=== PATIENT | male | born 1990 | race Caucasian/White ===

== ENCOUNTER 2019-12-02 16:44 | Inpatient (IN) | payer MEDICAID, SELFPAY ==
--- NOTE | 2019-12-02 16:49 | W.ED.PSYCH ---
HPI - Psych General: Chief Complaint: Altered Mental Status Stated Complaint: 96 hour hold Time Seen by Provider: 12/02/19 16:49 History of Present Illness: HPI Narrative: 29-year-old male brought in by [facility] for psychiatric evaluation. Patient is poorly responsive does not answer questions appropriately cannot get any meaningful history from him I have seen this patient in the past he appears to be in acute psychotic episode. Is actively having visual and auditory hallucinations in the exam room. Review of Systems General: Reports: ROS unobtainable due to medical condition and ROS unobtainable due to mental status PFSH ED PFSH: Social History Smoking and tobacco status: current every day smoker Physical Exam Const: COMMON NORMALS: no apparent distress EXAM LIMITATIONS: altered mental status GENERAL APPEARANCE: cooperative, comfortable, disheveled, lethargic and frail appearing NUTRITIONAL APPEARANCE: thin ORIENTATION/CONSCIOUSNESS: Yes lethargic HENMT: COMMON NORMALS: normocephalic, head/scalp atraumatic, hearing grossly normal bilaterally, external ears normal, EAC's normal, TM's normal bilaterally, nasal mucous membranes and turbinates normal, moist oral mucous membranes and oropharynx normal HEAD & SCALP: normocephalic and atraumatic NOSE: nasal mucous membranes and turbinates normal EXTERNAL EAR: Yes external ears normal EXTERNAL AUDITORY CANAL: EAC's normal TYMPANIC MEMBRANE: TM's normal bilaterally Eye: COMMON NORMALS: PERRL, EOMs intact bilaterally, conjunctivae normal and no scleral icterus CONJUNCTIVA: Yes conjunctivae normal PUPIL: Yes PERRL Neck/C-Spine: COMMON NORMALS: full ROM, no lymphadenopathy, supple and no JVD Lymph: LYMPHATIC: no lymphadenopathy noted and no lymphedema noted Resp: COMMON NORMALS: normal respiratory effort, no retractions, no use of accessory muscles and clear to auscultation bilaterally AUSCULTATION: clear to auscultation bilaterally Cardio: COMMON NORMALS: no JVD, regular rate, regular rhythm and no murmurs RATE: regular rate RHYTHM: regular rhythm GI: COMMON NORMALS: soft to palpation and no hepatosplenomegaly AUSCULTATION: Yes normoactive bowel sounds PALPATION: Yes soft, No tender, No guarding and Yes no hepatosplenomegaly Extremity: COMMON NORMALS: normal to inspection, normal capillary refill, no clubbing, cyanosis or edema, no calf tenderness and no pedal edema OTHER: Long nails, poor hygiene Neuro: SENSORIUM/ORIENTATION: Yes lethargic Skin: COMMON NORMALS: no rashes or lesions noted GENERAL SKIN EXAM: no rashes or lesions noted MDM - Psych MDM Narrative: Medical decision making narrative: Then medicated due to circumstances. Did not this measures to this point to become a psychiatric. He is having auditory visual hallucinations actively emergency room or with apparent harm to himself or others at this point. He has not adequately treated he will not be able to take care of himself and will become more harm himself or others. We will go ahead and put him on a 96-hour hold discussed with Dr. aleman Lab Data: Labs: Lab Results 12/02/19 12/02/19 12/02/19 Range/Units 17:17 17:17 18:00 WBC 8.7 (4.0-10.0) 10^3/ uL RBC 5.19 (4.1-5.3) 10^6/u L Hgb 15.5 (11.7-16.6) g/dL Hct 47.0 (42.0-52.0) % MCV 90.6 (80-94) fL MCH 29.9 (28.0-34.0) pg MCHC 33.0 (30.0-36.0) g/dL RDW 13.0 (12.1-15.1) % Plt Count 287 (130-400) 10^3/c mm MPV 10.9 H (7.4-10.4) fL Neut % (Auto) 78.7 % Lymph % (Auto) 13.4 % [place] % (Auto) 5.8 % Eos % (Auto) 1.0 % Baso % (Auto) 0.9 % Neut # (Auto) 6.9 (1.8-7.7) 10^3/u L Lymph # (Auto) 1.2 (0.8-4.8) 10^3/u L [place] # (Auto) 0.5 (0.2-0.9) 10^3/u L Eos # (Auto) 0.1 (0.0-0.8) 10^3/u L Baso # (Auto) 0.1 (0.0-0.1) 10^3/u L Nucleated RBC % (a uto) 0 % Nucleated RBCs # 0.0 /100WBC Sodium 140 (136-145) mmol/L Potassium 3.7 (3.5-5.1) mmol/L Chloride 102 (98-107) mmol/L Carbon Dioxide 25 (22-29) mmol/L Anion Gap 16.7 (5-19) BUN 8 (6-20) mg/dL Creatinine 0.9 (0.7-1.2) mg/dL GFR Calculation 99.1 (90-130) mL/min Glucose 136 H (65-115) mg/dL Calculated Osmolal ity 288 (285-295) mOsm/k g Calcium 10.1 (8.5-10.5) mg/dL Total Bilirubin 0.3 (0.15-1.2) mg/dL AST 21 (0-40) U/L ALT 16 (0-41) U/L Alkaline Phosphata se 59 (40-130) IU/L Total Protein 7.7 (6.6-8.7) g/dL Albumin 4.5 (3.5-5.2) g/dL Globulin 3.2 (1.3-4.6) g/dL Salicylates 0.5 L (3-10) mg/dL Urine Opiates Scre en Negative (Negative) ng/mL Acetaminophen < 5.0 L (10-30) ug/mL Ur Barbiturates Sc reen Negative (Negative) ng/mL Ur Phencyclidine S crn Negative (Negative) ng/mL Ur Amphetamines Sc reen Negative (Negative) ng/mL U Benzodiazepines Scrn Negative (Negative) ng/mL Urine Cocaine Scre en Negative (Negative) ng/mL U Marijuana (THC) Screen Negative (Negative) ng/mL Ethyl Alcohol < 10 (0-10) mg/dL Discharge Plan Discharge Admit Provider: Ajith Dunne Clinical Impression: Chronic schizophrenia with acute exacerbation Condition: Stable Interventions: ED Discharge Assessment Last Done: 12/02/19 18:45 Discharge Date/Time: 12/02/19 18:46 Coding Level of Care Code ED Nurse Special for Theresa Coelho
[2019-12-02 16:52] VITALS: BP 165/114; PULSE 112; RESP 20; TEMP 37.4; O2SAT 99; BMI 24.2
[2019-12-02 17:35] LABS: Basophils # 0.1 10^3/uL (0.0-0.1); Basophils % 0.9 %; Eosinophils # 0.1 10^3/uL (0.0-0.8); Hemoglobin 15.5 g/dL (11.7-16.6); Lymphocytes # 1.2 10^3/uL (0.8-4.8); Lymphocytes % 13.4 %; Mean Corpuscular Hemoglobin 29.9 pg (28.0-34.0); Mean Corpuscular Volume 90.6 fL (80-94); Mean Platelet Volume 10.9 fL (7.4-10.4); Monocytes # 0.5 10^3/uL (0.2-0.9); Monocytes % 5.8 %; Neutrophils # 6.9 10^3/uL (1.8-7.7); Neutrophils % 78.7 %; Nucleated Red Blood Cells % 0 %; Platelet Count 287 10^3/cmm (130-400); Red Blood Count 5.19 10^6/uL (4.1-5.3); White Blood Count 8.7 10^3/uL (4.0-10.0)
[2019-12-02 17:45] LABS: Alanine Aminotransferase 16 U/L (0-41); Albumin Level 4.5 g/dL (3.5-5.2); Alkaline Phosphatase 59 IU/L (40-130); Anion Gap 16.7 (5-19); Aspartate Amino Transferase 21 U/L (0-40); Blood Urea Nitrogen 8 mg/dL (6-20); Calcium 10.1 mg/dL (8.5-10.5); Carbon Dioxide 25 mmol/L (22-29); Chloride 102 mmol/L (98-107); Globulin 3.2 g/dL (1.3-4.6); Glomerular Filtration Rate 99.1 mL/min (90-130); Glucose 136 mg/dL (65-115); Osmolality Calculated 288 mOsm/kg (285-295); Potassium 3.7 mmol/L (3.5-5.1); Salicylate 0.5 mg/dL (3-10); Sodium 140 mmol/L (136-145); Total Bilirubin 0.3 mg/dL (0.15-1.2); Total Protein 7.7 g/dL (6.6-8.7)
[2019-12-02 17:46] LABS: Acetaminophen < 5.0 ug/mL (10-30); Alcohol Level < 10 mg/dL (0-10)
--- NOTE | 2019-12-02 18:11 | PC.NURSE ---
Patient pacing room, refusing to sit down at this time.
[2019-12-02 18:19] LABS: Amphetamines Screen Urine Negative (Negative); Barbiturates Screen Urine Negative (Negative); Benzodiazepines Screen Urine Negative (Negative); Cocaine Screen Urine Negative (Negative); Opiate Screen Urine Negative (Negative); PCP Screen Urine Negative (Negative); THC Screen Urine Negative (Negative)
[2019-12-02 18:38] VITALS: BP 172/104; PULSE 96; RESP 14; O2SAT 99
[2019-12-02 18:55] VITALS: BMI 20.8
[2019-12-02 18:57] VITALS: BP 153/94; PULSE 104; RESP 18; TEMP 36.4; O2SAT 98
[2019-12-02] MEDS: OLANZapine ODT 5 MG TABLET PO (21:22)
[2019-12-02] MEDS: trazodone 50 mg Tablet PO (21:23)
--- NOTE | 2019-12-02 21:24 | PC.NURSE ---
Pt given PRN Trazodone and Zyprexa due to continuous pacing, and to assist with sleep.
[2019-12-03 06:00] VITALS: BP 109/68; PULSE 75; RESP 18; TEMP 36.6; O2SAT 95
[2019-12-03 12:53] VITALS: BP 100/65; PULSE 98; RESP 18; TEMP 36.8; O2SAT 97
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
[2019-12-03] MEDS: ARIPiprazole 10 mg Tablet 5 MG PO (16:57)
[2019-12-03] MEDS: atenolol 50 mg Tablet 25 MG PO (20:07)
[2019-12-03] MEDS: trazodone 50 mg Tablet PO (20:07)
[2019-12-03] MEDS: OLANZapine ODT 5 MG TABLET PO (20:07)
--- NOTE | 2019-12-03 20:34 | PC.NURSE ---
PT GIVEN SCHEDULED ATENOLOL WELL PRN ZYPREXA AND TRAZODONE AT 2006.
[2019-12-03 21:17] VITALS: BP 122/60; PULSE 76; RESP 18; TEMP 37.1; O2SAT 96
[2019-12-04 06:00] VITALS: BP 114/60; PULSE 65; RESP 16; TEMP 36.4; O2SAT 97
[2019-12-04] MEDS: ARIPiprazole 10 mg Tablet 5 MG PO (08:53)
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
[2019-12-04 14:00] VITALS: BP 132/86; PULSE 88; RESP 18; TEMP 37.3; O2SAT 99
[2019-12-04 20:03] VITALS: BP 147/87; PULSE 86; RESP 17; TEMP 37; O2SAT 98
[2019-12-04] MEDS: atenolol 50 mg Tablet 25 MG PO (20:46)
[2019-12-04] MEDS: ARIPiprazole 10 mg Tablet PO (20:46)
[2019-12-04] MEDS: OLANZapine ODT 5 MG TABLET PO (23:49)
[2019-12-04] MEDS: trazodone 50 mg Tablet PO (23:49)
[2019-12-05 06:00] VITALS: BP 118/70; PULSE 67; RESP 17; TEMP 36.7; O2SAT 95
--- NOTE | 2019-12-05 10:41 | P.PN_ITS ---
Subjective NPU Subjective: Interval history: She is encountered in bed. He is easily awakened by verbal stimuli. However he does not respond with verbalizations that are intelligible. He then quickly goes back to sleep. Mental Status Exam MSE Comments: Mental Status Exam: Appearance: hygiene is poor; no gross neurological deficits., gait is unremarkable; AIMS=0 Speech: Speech is difficult to understand as he speaks in a low tone. He speaks only one-word responses but provides no significant information Thought processes: unable to assess Judgment is not adequate for safety. Psychotic processes: he seems cautious but not fearful. It is unclear whether he is attending to internal stimuli or just avoiding eye contact as a means of avoiding the interaction. He does not respond verbally and does not appear to be responding to any type of auditory hallucinations that he may be having. Judgment: unable to assess Problem solving skills are adequate for safety. Orientation: unable to assess Memory: unable to assess Attention: The patient is alert and only marginally interpersonally engaged. Language: Verbalizations are barely coherent. Fund of knowledge: unable to assess Affect/Mood: Affect is flat with a unstated mood. unable to assess suicidal ideation Affective range is constricted Psychosis: unable to assess Cognition: Patient Appearance: Appears Younger than Age and Disheveled/Poor Hygiene Level of Consciousness: Awake and Disoriented Patient Cognition Impaired: Yes Ability to Follow Directions: Poor Patient Orientation (long list): Person Comprehension Ability: Moderate Impairment Hallucination Type: None Delusion Description: Paranoid Ideation Thought Process: Blocking Affect: Affect Description: Appropriate and Calm Behavior: Patient Behavior: Appropriate Speech Pattern: Delayed and Difficulty Finding Words Vitals/I&O/Wt Last Vital Signs Temp 98.1 F 12/05/19 06:00 Pulse 67 12/05/19 06:00 Resp 17 12/05/19 06:00 BP 118/70 12/05/19 06:00 Pulse Ox 95 12/05/19 06:00 Data NPU : 12/02/19 17:17 12/02/19 17:17 A&P Additional A&P Information Due to the psychiatric conditions and treatment listed in the Assessment and Plan - the patient requires continued hospitalization. Will provide a safe and therapeutic environment for patient.. Will continue inpatient treatment to allow for medication adjustment and monitoring. Will continue q15 min safety checks. the patient appears to have been discharged on a combination of an antipsychotic and Depakote past 2 admissions. However it is unclear how those medications were chosen. Given the presence of apparent cognitive patients, it would be desirable to avoid sedating antipsychotics. Given history of elevated ammonia and its potential for causing delirium and behavioral disturbance, will avoid the use of Depakote at this time. Will initiate with a trial of Abilify 5 mg at bedtime with the potential of going to an injectable format tolerated and effective. Will also initiate atenolol as a beta óscar to try and reduce his level of explosive outbursts. Adjustments will be made pending response. Hospital Day #3: Pt continues to be unable to verbally provide feedback on medication efficacy and tolerability. He was given prn olanzapine and trazodone at 22:30 last night. Reasons are unclear but explain his degree of sedation this am. Plan: no changes. Am inclined to D/C hs olanzapine prn but will await information from staff about last night. no changes at thtis time. Monitor patient's mood, sleep, appetite, and behavior closely. Encourage patient to participate in individual and group therapeutic sessions on the [facility]. Estimated length of stay 5 days The expected benefits and potential side effects of patient's psychiatric medications were discussed with the patient. The patient understands and consents to treatment. CRITERIA FOR DISCHARGE: stable on medications and no longer an imminent threat to self or others Involuntary Hold Information 96 Hour Hold: 96 Hour Involuntary Admission: No Attestations NPU Medical Necessity Statement*: Patient will remain in the hospital another for 5 nights until his level of psychosis improved. Coding Level of Care Code Acute Automatic Clipper for Theresa Coelho
[2019-12-05 14:00] VITALS: BP 125/71; PULSE 76; RESP 20; TEMP 36.6; O2SAT 97
[2019-12-05] MEDS: atenolol 50 mg Tablet 25 MG PO (20:25)
[2019-12-05] MEDS: ARIPiprazole 10 mg Tablet 20 MG PO (20:26)
[2019-12-05] MEDS: trazodone 50 mg Tablet PO (20:27)
[2019-12-05 20:29] VITALS: BP 145/97; PULSE 90; RESP 17; TEMP 36.6; O2SAT 98
[2019-12-06 06:00] VITALS: BP 134/93; PULSE 64; RESP 16; TEMP 36.6; O2SAT 96
--- NOTE | 2019-12-06 08:21 | PM.NPN ---
Subjective NPU Subjective: Interval history: He is again encountered in bed. He is easily awakened by verbal stimuli b ut does not arise. He has not eaten breakfast. . He does not respond with verbalizations that are intelligible. He then quickly goes back to sleep. Vital Signs Temp Pulse Resp BP Pulse Ox 12/06/19 06:00 97.9 F 64 16 134/93 96 12/05/19 20:29 97.9 F 90 17 145/97 98 12/05/19 14:00 98 F 76 20 H 125/71 97 Unable to figure out to get running list of BP/pulse into record but diastolic pressures have been mildly elevated since admission Mental Status Exam MSE Comments: Mental Status Exam: Appearance: hygiene is poor; no gross neurological deficits., gait is unremarkable; AIMS=0 Speech: Speech is difficult to understand as he speaks in a low tone. He speaks only one-word responses but provides no significant information Thought processes: unable to assess Judgment is not adequate for safety. Psychotic processes: he seems cautious but not fearful. It is unclear whether he is attending to internal stimuli or just avoiding eye contact as a means of avoiding the interaction. He does not respond verbally and does not appear to be responding to any type of auditory hallucinations that he may be having. Judgment: unable to assess Problem solving skills are adequate for safety. Orientation: unable to assess Memory: unable to assess Attention: The patient is alert and only marginally interpersonally engaged. Language: Verbalizations are barely coherent. Fund of knowledge: unable to assess Affect/Mood: Affect is flat with a unstated mood. unable to assess suicidal ideation Affective range is constricted Psychosis: unable to assess Cognition: Patient Appearance: Appears Younger than Age and Disheveled/Poor Hygiene Level of Consciousness: Awake and Disoriented Patient Cognition Impaired: Yes Ability to Follow Directions: Poor Patient Orientation (long list): Person Comprehension Ability: Moderate Impairment Hallucination Type: None Delusion Description: Paranoid Ideation Thought Process: Blocking Affect: Affect Description: Appropriate Behavior: Patient Behavior: Appropriate Speech Pattern: Appropriate Vitals/I&O/Wt Last Vital Signs Temp 97.9 F 12/06/19 06:00 Pulse 64 12/06/19 06:00 Resp 16 12/06/19 06:00 BP 134/93 12/06/19 06:00 Pulse Ox 96 12/06/19 06:00 Data NPU : 12/02/19 17:17 12/02/19 17:17 A&P Additional A&P Information Due to the psychiatric conditions and treatment listed in the Assessment and Plan - the patient requires continued hospitalization. Will provide a safe and therapeutic environment for patient.. Will continue inpatient treatment to allow for medication adjustment and monitoring. Will continue q15 min safety checks. the patient appears to have been discharged on a combination of an antipsychotic and Depakote past 2 admissions. However it is unclear how those medications were chosen. Given the presence of apparent cognitive patients, it would be desirable to avoid sedating antipsychotics. Given history of elevated ammonia and its potential for causing delirium and behavioral disturbance, will avoid the use of Depakote at this time. Will initiate with a trial of Abilify 5 mg at bedtime with the potential of going to an injectable format tolerated and effective. Will also initiate atenolol as a beta óscar to try and reduce his level of explosive outbursts. Adjustments will be made pending response. Hospital Day #3: Pt continues to be unable to verbally provide feedback on medication efficacy and tolerability. He was given prn olanzapine and trazodone at 22:30 last night. Reasons are unclear but explain his degree of sedation this am. Plan: no changes. Am inclined to D/C hs olanzapine prn but will await information from staff about last night. no changes at thtis time. HD#4: mildly sedated after monodosing of Abilify 20 mg at bedtime. Diasotolic pressures remain elevated. Concerned that if Atenolol is increased, his level of sedation will increase as well. Plan: Decrease Abilify to 15 mg at bedtime and increase Atenolol to 50 mg at bedtime. Monitor patient's mood, sleep, appetite, and behavior closely. Encourage patient to participate in individual and group therapeutic sessions on the [facility]. Estimated length of stay 5 days The expected benefits and potential side effects of patient's psychiatric medications were discussed with the patient. The patient understands and consents to treatment. CRITERIA FOR DISCHARGE: stable on medications and no longer an imminent threat to self or others Involuntary Hold Information 96 Hour Hold: 96 Hour Involuntary Admission: No Attestations NPU Medical Necessity Statement*: Remain in the hospital another 3 nights for medication efficacy and tolerability reassessment Coding Level of Care Code Acute Station Gateman for Theresa Coelho
--- NOTE | 2019-12-06 12:45 | PC.SLP ---
mom was called and she said that she would like to see patient get an injection. It was suggested to her and she liked the idea. the issue she might have is where he will go to get it in a month. She said that she thinks she can take him to primary care doctor if she cannot get him in with [facility] [place]. She plans to call tomorrow to see if it is happening tomorrow or monday. She has to arrange her ride so she will be checking with his nurse before she makes plans to come here.
[2019-12-06 14:00] VITALS: BP 145/80; PULSE 85; RESP 20; TEMP 36.9; O2SAT 99
[2019-12-06] MEDS: ARIPiprazole 10 mg Tablet 15 MG PO (20:41)
[2019-12-06] MEDS: atenolol 50 mg Tablet PO (20:41)
[2019-12-06 22:00] VITALS: BP 152/110; PULSE 78; RESP 18; TEMP 36.8; O2SAT 100
[2019-12-07 06:00] VITALS: BP 116/67; PULSE 50; RESP 16; TEMP 36.8; O2SAT 97
--- NOTE | 2019-12-07 08:44 | PM.NPN ---
Subjective NPU Subjective: Interval history: He is again encountered in bed. He is easily awakened by verbal stimuli b ut does not arise. He has not eaten breakfast. . He does not respond with verbalizations that are intelligible. He then quickly goes back to sleep. Vital Signs Temp Pulse Resp BP Pulse Ox 12/06/19 06:00 97.9 F 64 16 134/93 96 12/05/19 20:29 97.9 F 90 17 145/97 98 12/05/19 14:00 98 F 76 20 H 125/71 97 Mental Status Exam MSE Comments: Mental Status Exam: Appearance: hygiene is poor; no gross neurological deficits., gait is unremarkable; AIMS=0 Speech: Speech is difficult to understand as he speaks in a low tone. He speaks only one-word responses but provides no significant information Thought processes: unable to assess Judgment is not adequate for safety. Psychotic processes: he seems cautious but not fearful. It is unclear whether he is attending to internal stimuli or just avoiding eye contact as a means of avoiding the interaction. He does not respond verbally and does not appear to be responding to any type of auditory hallucinations that he may be having. Judgment: unable to assess Problem solving skills are adequate for safety. Orientation: unable to assess Memory: unable to assess Attention: The patient is alert and only marginally interpersonally engaged. Language: Verbalizations are barely coherent. Fund of knowledge: unable to assess Affect/Mood: Affect is flat with a unstated mood. unable to assess suicidal ideation Affective range is constricted Psychosis: unable to assess Cognition: Patient Appearance: Appears Younger than Age Level of Consciousness: Awake and Disoriented Patient Cognition Impaired: Yes Ability to Follow Directions: Poor Patient Orientation (long list): Person Comprehension Ability: Moderate Impairment Hallucination Type: Auditory Delusion Description: Not Present Thought Process: Blocking Affect: Affect Description: Guarded Behavior: Patient Behavior: Withdrawn Speech Pattern: Clear Vitals/I&O/Wt Last Vital Signs Temp 98.2 F 12/07/19 06:00 Pulse 50 L 12/07/19 06:00 Resp 16 12/07/19 06:00 BP 116/67 12/07/19 06:00 Pulse Ox 97 12/07/19 06:00 Data NPU : 12/02/19 17:17 12/02/19 17:17 A&P Additional A&P Information Staff reports that he continues to be more active in the afternoons. He is increasingly verbally interactive. However he also continues to be low functioning. Target level of function is unknown but family reports that they feel he is doing pretty well. Due to the psychiatric conditions and treatment listed in the Assessment and Plan - the patient requires continued hospitalization. Will provide a safe and therapeutic environment for patient.. Will continue inpatient treatment to allow for medication adjustment and monitoring. Will continue q15 min safety checks. the patient appears to have been discharged on a combination of an antipsychotic and Depakote past 2 admissions. However it is unclear how those medications were chosen. Given the presence of apparent cognitive patients, it would be desirable to avoid sedating antipsychotics. Given history of elevated ammonia and its potential for causing delirium and behavioral disturbance, will avoid the use of Depakote at this time. Will initiate with a trial of Abilify 5 mg at bedtime with the potential of going to an injectable format tolerated and effective. Will also initiate atenolol as a beta óscar to try and reduce his level of explosive outbursts. Adjustments will be made pending response. Hospital Day #3: Pt continues to be unable to verbally provide feedback on medication efficacy and tolerability. He was given prn olanzapine and trazodone at 22:30 last night. Reasons are unclear but explain his degree of sedation this am. Plan: no changes. Am inclined to D/C hs olanzapine prn but will await information from staff about last night. no changes at thtis time. HD#4: mildly sedated after monodosing of Abilify 20 mg at bedtime. Diasotolic pressures remain elevated. Concerned that if Atenolol is increased, his level of sedation will increase as well. Plan: Decrease Abilify to 15 mg at bedtime and increase Atenolol to 50 mg at bedtime. HD#5: BP continues to run elevated. Outpatient compliance will continue to be problematic. He would benefit from Abilify Maintenna injection if he will consent. He definitely is more cooperative with female staff. Monitor patient's mood, sleep, appetite, and behavior closely. Encourage patient to participate in individual and group therapeutic sessions on the [facility]. Estimated length of stay 5 days The expected benefits and potential side effects of patient's psychiatric medications were discussed with the patient. The patient understands and consents to treatment. CRITERIA FOR DISCHARGE: stable on medications and no longer an imminent threat to self or others Involuntary Hold Information 96 Hour Hold: 96 Hour Involuntary Admission: No Attestations NPU Medical Necessity Statement*: In hospital another 2-3 nights for continued assessment of efficacy and tolerability of medication and attempt to address problems of noncompliance following discharge. Coding Level of Care Code Acute Crossbow Maker for Theresa Coelho
[2019-12-07 12:46] VITALS: BP 120/70; PULSE 72; RESP 17; TEMP 36.8; O2SAT 97
[2019-12-07] MEDS: atenolol 50 mg Tablet PO (20:47)
[2019-12-07] MEDS: ARIPiprazole 10 mg Tablet 15 MG PO (20:47)
[2019-12-07 22:00] VITALS: BP 135/85; PULSE 77; RESP 18; TEMP 36.6; O2SAT 98
[2019-12-08 06:00] VITALS: BP 121/77; PULSE 56; RESP 16; TEMP 36.7; O2SAT 98
[2019-12-08 14:00] VITALS: BP 112/78
--- NOTE | 2019-12-08 14:57 | PM.NPN ---
Subjective NPU Subjective: Interval history: Moses presents today reporting that he is doing okay. He reports that he is here because he does not know exactly what he did wrong, but his family really thought he was having a hard time. He reports that he feels better and, according to the notes, the fact that he was speaking to me was a good sign because he has been mostly mute, previously. I did have to work to be fairly firm in getting him to give me an answer to the questions that I was asking, but with some insistence, he did use words as responses. He reports that the medication is going okay. Mental Status Exam MSE Comments: This is a diminutive, white male, with adequate dress and limited grooming and eye contact, with somewhat abnormal facies. With significant psychomotor retardation. Semi-cooperative with exam in no acute distress. Speech was very limited and significantly decreased rate and volume. Mood described as okay; affect quite subdued. Thought process, linear. Thought content: patient denied any suicidal or homicidal ideation, there were no delusions reported or noted, he denied any auditory or visual hallucinations. Attention and concentration appeared intact, and memory was seemingly reliable, but none were formally tested. He is alert and oriented to person and place. Insight and judgment are limited. Vitals/I&O/Wt Last Vital Signs Temp 98.0 F 12/08/19 06:00 Pulse 56 L 12/08/19 06:00 Resp 16 12/08/19 06:00 BP 112/78 12/08/19 14:00 Pulse Ox 98 12/08/19 06:00 Weight last 48 hrs Weight 67.676 kg Data NPU : 12/02/19 17:17 12/02/19 17:17 A&P Additional A&P Information This is a 29 year old, white male, with history of schizophrenia and likely intellectual disability, who presents with active psychosis improving on medication. RECOMMENDATION AND PLAN: Continue current medication. Will speak with him tomorrow about the possibility of an injection. Continue individual and milieu therapy. Continue q-15 minute checks for safety. Will work with treatment team tomorrow for arrangement for discharge this week. Involuntary Hold Information 96 Hour Hold: 96 Hour Involuntary Admission: No Attestations NPU Medical Necessity Statement*: Inpatient hospitalization is medically necessary and the clinically appropriate intervention at this time. We will monitor medications and adjust as indicated. Likely length of stay is two to four days. Coding Level of Care Code Acute Food Consultant for Theresa Coelho
[2019-12-08] MEDS: ARIPiprazole 10 mg Tablet 15 MG PO (21:17)
[2019-12-08] MEDS: atenolol 50 mg Tablet PO (21:18)
[2019-12-08] MEDS: OLANZapine ODT 5 MG TABLET PO (21:18)
[2019-12-08 21:33] VITALS: BP 164/97; PULSE 80; RESP 21; TEMP 36.8; O2SAT 97
--- NOTE | 2019-12-08 21:40 | PC.NURSE ---
Pt given HS abilify and tenormin and pre zyprexa at 2117.
[2019-12-09 06:00] VITALS: BP 125/77; PULSE 67; RESP 18; TEMP 36.5; O2SAT 97
[2019-12-09 14:00] VITALS: BP 123/70; PULSE 71; RESP 16; TEMP 36.7; O2SAT 98
--- NOTE | 2019-12-09 14:00 | PC.SOCIAL ---
mom was called. it was said in morning report that there is a possibility of getting an injection today and then maybe discharging tomorrow. message was left to update patient's mom.
[2019-12-09] MEDS: ARIPiprazole Maintena 400 MG IM (15:20)
--- NOTE | 2019-12-09 15:20 | PC.NURSE ---
DARLEEN MAINENA 400 MG GIVEN IM ORDERED BY PHYSICIAN. INJECTION GIVEN IN RIGHT DELTOID PT EDUCATED ON INJECTION & VERBALIZED UNDERSTANDING. WILL CONT TO MONITOR INJECTION SITE FOR ANY REDNESS, SWELLING, OR IRRITATION. LOT [id number] EXP JAN 2021
--- NOTE | 2019-12-09 15:41 | P.PN_ITS ---
Subjective NPU Subjective: Interval history: Moses presented today with a very similar presentation as yesterday, very resistant to spontaneous verbal communication. But with firmness he will respond with oral retorts. We discussed his family?s hope that he is compliant with medication, which brought us to the discussion of an injection of Abilify; initially he was resistant then, ultimately, he agreed that it would be something that would assist him and his family to maintain his adherence to the medication. Plus we discussed the fact that it would make the treatment team much more confident about a discharge. Mental Status Exam 2 MSE Comments: This is a diminutive, white male, with adequate dress and limited grooming and eye contact. No abnormal movements, except for significant psychomotor retardation and occasionally a flicking movement which is likely related to possible autism spectrum disorder. Cooperative with exam in no acute distress. Speech was limited and significantly decreased rate and volume. Mood described as okay; affect subdued. Thought process, linear. Thought content: patient denied any suicidal or homicidal ideation, there were no delusions reported or noted, he denied any auditory or visual hallucinations. Attention, concentration, and memory appeared intact but were not formally tested. Insight and judgment are limited. Intellectual disability is likely limited. He is alert and oriented to person and place. Vitals/I&O/Wt Last Vital Signs Temp 98.7 F 12/09/19 21:57 Pulse 62 12/09/19 21:57 Resp 17 12/09/19 21:57 BP 135/86 12/09/19 21:57 Pulse Ox 99 12/09/19 21:57 Weight last 48 hrs Weight 67.676 kg Data NPU : 12/02/19 17:17 12/02/19 17:17 A&P Additional A&P Information This is a 29 year old, white male, with history of schizophrenia and likely intellectual disability, who presents with active psychosis improving on medication. RECOMMENDATION AND PLAN: Continue current medication. Give Abilify injection 400mg im today Continue individual and milieu therapy. Continue q-15 minute checks for safety. Will work with treatment team for discharge plan tomorrow. Involuntary Hold Information 96 Hour Hold: 96 Hour Involuntary Admission: No Attestations NPU Medical Necessity Statement*: Inpatient hospitalization is medically necessary and the clinically appropriate intervention at this time. We will monitor medications and adjust as indicated. Likely length of stay is 1-3 days. Tentative plan for discharge tomorrow. Coding Level of Care Code Acute Personal Financial Counselor for Theresa Coelho
[2019-12-09] MEDS: OLANZapine ODT 5 MG TABLET PO (20:28)
[2019-12-09] MEDS: ARIPiprazole 10 mg Tablet 15 MG PO (20:28)
[2019-12-09] MEDS: atenolol 50 mg Tablet PO (20:29)
--- NOTE | 2019-12-09 21:41 | PC.NURSE ---
Pt given scheduled abilify and tenormin and zyprexa at 2028.
[2019-12-09 21:57] VITALS: BP 135/86; PULSE 62; RESP 17; TEMP 37.1; O2SAT 99
[2019-12-10 05:50] VITALS: BP 151/96; PULSE 78; RESP 19; TEMP 36.4; O2SAT 98
--- NOTE | 2019-12-10 07:15 | PM.NPN ---
Subjective NPU Subjective: Interval history: . The patient was actually discharged today. It is unclear why a progress note is expected. So here is his discharge summary also listed for today. Moses presented to the emergency room with the [facility] department basically mute and in an apparent acute psychotic episode with reports in the emergency room of responding to internal stimuli with apparent auditory and visual hallucinations. He was admitted to the neuropsychiatric unit and slowly acclimated to the resources provided there. Abilify was initiated and he began to have the normal [id number] of conversation. He continued to lack significant spontaneous speech but was able to effectively communicate with the staff. He also agreed to taking the Abilify Maintena injection prior to discharge. His presentation was clearly informed by intellectual disability and possible autism. During the hospitalization he had routine laboratory studies which were within normal limits except for a few outliers. Additionally there was a general medical evaluation which was also within normal limits and revealed no new acute processes. Mental Status Exam MSE Comments: See discharge summary for today Cognition: Patient Appearance: Appears Younger than Age Level of Consciousness: Awake, Alert, Appropriate and Follows Commands Patient Cognition Impaired: Yes Ability to Follow Directions: Poor Patient Orientation (long list): Person Comprehension Ability: Moderate Impairment Hallucination Type: None Delusion Description: Not Present Thought Process: Blocking Affect: Affect Description: Flat Behavior: Patient Behavior: Appropriate Speech Pattern: No Speech Vitals/I&O/Wt Last Vital Signs Temp 97.6 F 12/10/19 14:42 Pulse 78 12/10/19 14:42 Resp 19 H 12/10/19 14:42 BP 151/96 12/10/19 14:42 Pulse Ox 98 12/10/19 14:42 Data NPU : 12/02/19 17:17 12/02/19 17:17 A&P Assessment and plan (1) Chronic schizophrenia with acute exacerbation: Status: Acute (2) Intellectual disability: Status: Acute Additional A&P Information See discharge summary for today Involuntary Hold Information 96 Hour Hold: 96 Hour Involuntary Admission: No Attestations NPU Medical Necessity Statement*: nterval history: . The patient was actually discharged today. It is unclear why a progress note is expected. So here is his discharge summary also listed for today. Coding Level of Care Code Acute Pattern Attendant for Theresa Coelho Diagnoses Chronic schizophrenia with acute exacerbation F20.9 Intellectual disability F79
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
[2019-12-10 14:42] VITALS: BP 151/96; PULSE 78; RESP 19; TEMP 36.4; O2SAT 98
--- NOTE | 2020-01-02 15:46 | P.PN_ITS ---
Subjective NPU Subjective: Interval history: . The patient was actually discharged today. It is unclear why a progress note is expected. So here is his discharge summary also listed for today. Moses presented to the emergency room with the [facility] department basically mute and in an apparent acute psychotic episode with reports in the emergency room of responding to internal stimuli with apparent auditory and visual hallucinations. He was admitted to the neuropsychiatric unit and slowly acclimated to the resources provided there. Abilify was initiated and he began to have the normal srzq-vhb-rysm of conversation. He continued to lack significant spontaneous speech but was able to effectively communicate with the staff. He also agreed to taking the Abilify Maintena injection prior to discharge. His presentation was clearly informed by intellectual disability and possible autism. During the hospitalization he had routine laboratory studies which were within normal limits except for a few outliers. Additionally there was a general medical evaluation which was also within normal limits and revealed no new acute processes. Mental Status Exam MSE Comments: See discharge summary for today Vitals/I&O/Wt Last Vital Signs Temp 97.6 F 12/10/19 14:42 Pulse 78 12/10/19 14:42 Resp 19 H 12/10/19 14:42 BP 151/96 12/10/19 14:42 Pulse Ox 98 12/10/19 14:42 Data NPU : 12/02/19 17:17 12/02/19 17:17 A&P Additional A&P Information See discharge summary for today Involuntary Hold Information 96 Hour Hold: 96 Hour Involuntary Admission: No Attestations NPU Medical Necessity Statement*: He was actually discharged today see the discharge summary also written on this date. Coding Level of Care Code Acute Contract Implementation Analyst for Theresa Coelho
== END 2019-12-10 16:24 | disposition home or self-care (01) | DRG 885 ==
LOC: ER 17:44 → NP 18:37
PROVIDERS: Admitting Provider Psychiatry & Neurology Psychiatry; Emergency Provider Family Medicine; Visit Provider Psychiatry & Neurology Psychiatry
DX: F20.9 Schizophrenia, unspecified (principal); F71 Moderate intellectual disabilities; F17.210 Nicotine dependence, cigarettes, uncomplicated; Z81.8 Family history of other mental and behavioral disorders
CPT/HCPCS: 12345; 36415; 80053; 80306; 80307; 85025; 96372; 99284; J0401

== ENCOUNTER 2019-12-02 16:44 | Emergency (ER) | payer MEDICAID, SELFPAY | END 2019-12-02 18:46 | disposition admitted as inpatient to this hospital (09) | LOC: ER 12-09 10:01 | PROVIDERS: Emergency Provider Family Medicine | DX: F20.9 Schizophrenia, unspecified (principal); F17.210 Nicotine dependence, cigarettes, uncomplicated | CPT/HCPCS: 12345; 36415; 80053; 80306; 80307; 85025; 99284; 99285 ==

== ENCOUNTER 2020-06-11 14:21 | Emergency (ER) | payer MEDICAID, SELFPAY ==
[2020-06-11 14:29] VITALS: BP 154/99; PULSE 104; RESP 16; TEMP 37.2; O2SAT 98; BMI 22.9
--- NOTE | 2020-06-11 14:54 | XR_ITS ---
WS: [id number] Right hand, 3 views, 06/11/2020 Clinical Data: hand pain Comparison: Right hand, 10/07/2018 Findings: No fractures or dislocations are seen. The soft tissues are unremarkable. The joint space s are normal XR/XR hand RT min 3V* [id number] Impression: Negative right hand.
--- NOTE | 2020-06-11 14:57 | ED_ITS ---
HPI - General Adult General: Chief complaint: General Medical Stated complaint: ARM AND LEG PAIN Time Seen by Provider: 06/11/20 14:28 Source: family (mother) and EMS Limitations: other (developmental delay) History of Present Illness: HPI narrative: Patient is a 29-year-old male with developmental delay who was brought into the emergency department by EMS with concerns of arm and leg pain of about 1 months duration. Mother states that he appears to be walking differently. No fever, no trauma. When asked the patient states that he has pain in his left hand. Review of Systems General: Reports: Other (Unobtainable due to developmental delay) [facility] ED PFSH: Social History Smoking and tobacco status: current every day smoker Physical Exam Const: COMMON NORMALS: no acute distress, average body habitus, patient oriented x3, no limitations, healthy appearing, alert and well nourished HENMT: COMMON NORMALS: normocephalic, atraumatic and moist oral mucous membranes HEAD & SCALP: normocephalic and atraumatic Neck/C-Spine: COMMON NORMALS: full ROM, supple, no meningeal signs, no JVD and No carotid bruits Resp: COMMON NORMALS: normal respiratory effort, No retractions, No use of accessory muscles, clear to auscultation bilaterally and percussion normal AUSCULTATION: clear to auscultation bilaterally PERCUSSION: percussion normal Cardio: COMMON NORMALS: no JVD, regular rate, regular rhythm, S1 normal heart sound present, S2 normal heart sound present, No gallops present (Cardio), No clicks present (Cardio), No murmurs present (Cardio), No rub (Cardio) and Peripheral pulses 2+ throughout RATE: regular rate RHYTHM: regular rhythm HEART SOUNDS: S1 normal heart sound present and S2 normal heart sound present PERIPHERAL PULSES: Peripheral pulses 2+ throughout GI: COMMON NORMALS: Normal to inspection, nondistended, normoactive bowel sounds present, Soft to palpation, non-tender, No hepatosplenomegaly present, no masses and no bruits PALPATION: Yes Soft to palpation and Yes No hepatosplenomegaly present Extremity: COMMON NORMALS: normal to inspection, full ROM, capillary refill normal, no calf tenderness and no pedal edema OTHER: Palpated all extremities and the only place where there appears to be tenderness is in his left palm. No other tenderness appreciated on palpation of all limbs Neuro: COMMON NORMALS: patient oriented x3 SENSORIUM/ORIENTATION: Yes alert MENINGEAL SIGNS: Yes no meningeal signs Skin: COMMON NORMALS: no rashes or lesions noted, no wounds, turgor normal, no jaundice, no petechiae and no mottling GENERAL SKIN EXAM: no rashes or lesions noted and turgor normal Course Reevaluation(s): Reevaluation #1: Discussed his lab and imaging findings with mother, all negative for acute findings. We will discharge him home with no new orders. She voiced understanding and is in agreement with the plan Time: 16:34 Vital Signs: Vital signs: Vital Signs Temperature 99.0 F 06/11/20 14:29 Pulse Rate 101 H 06/11/20 15:23 Respiratory Rate 18 06/11/20 15:23 Blood Pressure 154/99 06/11/20 15:23 Pulse Oximetry 99 06/11/20 15:23 MDM - General Adult MDM Narrative: Medical decision making narrative: Patient with what appears to be chronic symptoms. Mother states that he has been in pain for over a month. Along with cramping of his arm. Evaluation in the emergency department is unremarkable and he is discharged home to follow-up with his primary care provider Medical Records: Attestation: I reviewed the patient's medical records. Lab Data: Attestation: I reviewed the patient's lab results. Labs: Lab Results 06/11/20 06/11/20 06/11/20 Range/Units 15:15 15:19 15:19 WBC 10.6 H (4.0-10.0) 10^3/ uL RBC 5.55 H (4.1-5.3) 10^6/u L Hgb 16.5 (11.7-16.6) g/dL Hct 50.7 (42.0-52.0) % MCV 91.4 (80-94) fL MCH 29.7 (28.0-34.0) pg MCHC 32.5 (30.0-36.0) g/dL RDW 13.3 (12.1-15.1) % Plt Count 303 (130-400) 10^3/c mm MPV 11.3 H (7.4-10.4) fL Neut % (Auto) 71.9 % Lymph % (Auto) 18.1 % [place] % (Auto) 7.2 % Eos % (Auto) 1.6 % Baso % (Auto) 0.9 % Neut # (Auto) 7.60 (1.8-7.7) 10^3/u L Lymph # (Auto) 1.9 (0.8-4.8) 10^3/u L [place] # (Auto) 0.8 (0.2-0.9) 10^3/u L Eos # (Auto) 0.2 (0.0-0.8) 10^3/u L Baso # (Auto) 0.1 (0.0-0.1) 10^3/u L Nucleated RBC % (a uto) 0 % Nucleated RBCs # 0.0 /100WBC Sodium 139 (136-145) mmol/L Potassium 3.7 (3.5-5.1) mmol/L Chloride 101 (98-107) mmol/L Carbon Dioxide 25 (22-29) mmol/L Anion Gap 16.7 (5-19) BUN 6 (6-20) mg/dL Creatinine 0.9 (0.7-1.2) mg/dL GFR Calculation 99.1 (90-130) mL/min Glucose 88 (65-115) mg/dL Calculated Osmolal ity 285 (285-295) mOsm/k g Calcium 10.3 (8.5-10.5) mg/dL Magnesium 1.9 (1.7-2.3) mg/dL Total Bilirubin 0.3 (0.15-1.2) mg/dL AST 25 (0-40) U/L ALT 32 (0-41) U/L Alkaline Phosphata se 61 (40-130) IU/L Total Protein 8.0 (6.6-8.7) g/dL Albumin 4.9 (3.5-5.2) g/dL Globulin 3.1 (1.3-4.6) g/dL Urine Color Yellow (Yellow) Urine Appearance Clear (CLEAR) Urine pH 6.5 (5-7) Ur Specific Gravit y 1.010 (1.005-1.030) Urine Protein Neg (Negative) Urine Glucose (UA) Norm (Normal) Urine Ketones Negative (Negative) Urine Blood Neg (Negative) Urine Nitrate Negative (Negative) Urine Bilirubin Neg (Negative) Urine Urobilinogen Norm (Negative) mg/dL Ur Leukocyte [place] ase Negative (Negative) Imaging Data^: Xray Ortho: Attestation: I personally reviewed and interpreted this imaging study as follows: Radiologist's impression: [address] [place] [address] XRay Report Signed Patient: Moses Tomlin #: [id number] : 1990Acct#:[id number] Age/Sex: 29 / MADM Date: 06/11/20 Loc: ERRoom/Bed: Attending Dr: Ordering Provider/Ordering MD: India Pozo MD, [facility] Date of Service: 06/11/20 Procedure(s): XR hand RT min 3V* [id number] Accession Number(s): [id number] Report Number: [id number] WS: [id number] Right hand, 3 views, 06/11/2020 Clinical Data: hand pain Comparison: Right hand, 10/07/2018 Findings: No fractures or dislocations are seen. The soft tissues are unremarkable. The joint spaces are normal XR/XR hand RT min 3V* [id number] Impression: Negative right hand. Dictated By:Merna Terrazas MD Signed By:Merna Terrazas MDSigned Date/Time:06/11/201513 DD/ 11 Discharge Plan Discharge Patient Disposition: Home Clinical Impression: Worried well Chronic pain Qualifiers: Chronic pain type: other chronic pain Qualified Code(s): G89.29 - Other chronic pain Condition: Stable Prescriptions: Continued atenolol 50 mg Tablet 50 mg PO BEDTIME 30 Days Qty: 30 RF: 1 Abilify Maintena 400 mg suspension,extended rel recon 400 mg IM PER PKG DIR 30 Days Qty: 1 RF: 2 Discharge Orders: Discharge Order (Routine); Ordered 06/11/20 Ordered By: India Pozo Discharge Diet: Usual diet Discharge Activity: Resume usual activity Patient Instructions: Chronic Pain (ED) Activity Restrictions/Additional Instructions: Return for any new or worsening symptoms. Follow-up with your primary care provider within 3 days. Continue home medications as prescribed Coding Level of Care Code ED Circular Saw Operator for Chg Fwd Exam Comprehensive
[2020-06-11 15:23] VITALS: BP 154/99; PULSE 101; RESP 18; O2SAT 99
[2020-06-11 15:29] LABS: Add Urine Microscopic? NO
[2020-06-11 15:44] LABS: Basophils # 0.1 10^3/uL (0.0-0.1); Basophils % 0.9 %; Eosinophils # 0.2 10^3/uL (0.0-0.8); Eosinophils % 1.6 %; Hematocrit 50.7 % (42.0-52.0); Hemoglobin 16.5 g/dL (11.7-16.6); Lymphocytes # 1.9 10^3/uL (0.8-4.8); Lymphocytes % 18.1 %; Mean Corpuscular HGB Conc 32.5 g/dL (30.0-36.0); Mean Corpuscular Hemoglobin 29.7 pg (28.0-34.0); Mean Corpuscular Volume 91.4 fL (80-94); Mean Platelet Volume 11.3 fL (7.4-10.4); Monocytes # 0.8 10^3/uL (0.2-0.9); Monocytes % 7.2 %; Neutrophils % 71.9 %; Nucleated Red Blood Cells % 0 %; Platelet Count 303 10^3/cmm (130-400); Red Blood Count 5.55 10^6/uL (4.1-5.3); Red Cell Distribution Width 13.3 % (12.1-15.1); White Blood Count 10.6 10^3/uL (4.0-10.0)
[2020-06-11 15:47] LABS: Alanine Aminotransferase 32 U/L (0-41); Albumin Level 4.9 g/dL (3.5-5.2); Alkaline Phosphatase 61 IU/L (40-130); Anion Gap 16.7 (5-19); Aspartate Amino Transferase 25 U/L (0-40); Blood Urea Nitrogen 6 mg/dL (6-20); Calcium 10.3 mg/dL (8.5-10.5); Carbon Dioxide 25 mmol/L (22-29); Chloride 101 mmol/L (98-107); Globulin 3.1 g/dL (1.3-4.6); Glomerular Filtration Rate 99.1 mL/min (90-130); Glucose 88 mg/dL (65-115); Magnesium 1.9 mg/dL (1.7-2.3); Osmolality Calculated 285 mOsm/kg (285-295); Potassium 3.7 mmol/L (3.5-5.1); Sodium 139 mmol/L (136-145); Total Bilirubin 0.3 mg/dL (0.15-1.2)
[2020-06-11 16:08] LABS: Urine Appearance Clear (CLEAR); Urine Color Yellow (Yellow); pH Urine 6.5 (5-7)
[2020-06-11 16:09] LABS: Bilirubin Urine Neg (Negative); Blood Urine Neg (Negative); Glucose Urine UA Norm (Normal); Ketones Urine Negative (Negative); Leukocyte Esterase Urine Negative (Negative); Nitrate Urine Negative (Negative); Protein Urine Neg (Negative); Urobilinogen Urine Norm (Negative)
== END 2020-06-11 16:47 | disposition home or self-care (01) ==
PROVIDERS: Emergency Provider Family Medicine
DX: G89.29 Other chronic pain (principal); Z71.1 Person with feared health complaint in whom no diagnosis is made; F17.210 Nicotine dependence, cigarettes, uncomplicated
CPT/HCPCS: 12345; 73130; 80053; 81003; 83735; 85025; 99281; 99283

== ENCOUNTER 2021-02-05 11:01 | Emergency (ER) | payer MEDICAID, SELFPAY ==
[2021-02-05 11:17] VITALS: BP 109/91; PULSE 136; RESP 16; TEMP 36.6; O2SAT 98; BMI 19.5
--- NOTE | 2021-02-05 11:31 | PC.NURSE ---
ASKED PATIENT TO REMAIN IN ROOM UNTIL TRANSPORTATION COULD BE DETERMINED. NOTIFIED PHSYCIAN OF PATIENTS RESTLESSNESS AND TRYING TO LEAVE THE FACILITY;
--- NOTE | 2021-02-05 11:34 | PC.NURSE ---
PT BECOMING MORE HOSTILE AND STARTED YELLING; SECURITY CALLED.
--- NOTE | 2021-02-05 11:35 | PC.NURSE ---
WATER GIVEN TO PATIENT; OFFERED FOOD AND PATIENT REFUSED
--- NOTE | 2021-02-05 11:37 | PC.NURSE ---
DR. CANA[place] SPEAKING WITH PATIENT IN [facility] WHILE WAITING ON SECURITY.
--- NOTE | 2021-02-05 11:37 | PC.NURSE ---
PATIENT LEFT THE FLOOR WITH DR PALACIOS FOLLOWING BEHIND THE PATIENT.
--- NOTE | 2021-02-05 11:46 | W.ED.GENADLT ---
HPI - General Adult General: Chief complaint: General Medical Stated complaint: BEHAVIORAL ISSUES Time Seen by Provider: 02/05/21 11:09 History of Present Illness: HPI narrative: 30-year-old male brought in by EMS. Evidently been wandering around he has significant intellectual disability been wandering around trying to break into people's homes to get cooled off please recall they called EMS and they brought him here. Patient has been here previously he denies any suicidal or homicidal ideation he is rather aggressive and posturing response at times screaming at us. He is on Abilify is 400 mg IM every 30 days. He denies any pain or difficulty he denies any auditory or visual hallucinations he is very adamant and vocal about just wanting to leave. No family members available we did try to contact him he said no repeat with a come up to the ER until around 230 this afternoon. Review of Systems General: Reports: ROS unobtainable due to mental status PFSH ED PFSH: Social History Smoking and tobacco status: current every day smoker Physical Exam Const: ORIENTATION/CONSCIOUSNESS: Yes awake HENMT: COMMON NORMALS: normocephalic, atraumatic and hearing grossly normal bilaterally HEAD & SCALP: normocephalic and atraumatic Resp: COMMON NORMALS: normal respiratory effort, No retractions, No use of accessory muscles and clear to auscultation bilaterally AUSCULTATION: clear to auscultation bilaterally Cardio: COMMON NORMALS: regular rate, regular rhythm and No murmurs present (Cardio) RATE: regular rate RHYTHM: regular rhythm Extremity: COMMON NORMALS: normal to inspection, capillary refill normal, no clubbing, cyanosis or edema, no calf tenderness and no pedal edema Course Vital Signs: Vital signs: Vital Signs Temperature 98 F 02/05/21 11:17 Pulse Rate 136 H 02/05/21 11:17 Respiratory Rate 16 02/05/21 11:17 Blood Pressure 109/91 02/05/21 11:17 Pulse Oximetry 98 02/05/21 11:17 MDM - General Adult MDM Narrative: Medical decision making narrative: Attempted to contact family they were unable to get anyone here until 230 this afternoon patient became very aggressive with physical posture and verbally screaming that he wanted to leave immediately. I discussed with him in the erazo for an extended period of time tried to dissuade him tried to redirect him offered him something to eat or drink tried to direct him into back into the exam room. He did not want to do that and refused. At this point I do not have anything that would justify placing him on a 96-hour hold he repeatedly denies any acute psychosis any visual or auditory hallucinations any suicidal or homicidal thoughts. We called to check with the family evidently he is his own power of regulatory attorney no one has guardianship of him. Given the circumstances even though my preference would be to keep him and try to help him get some kind of placement or lease get him back with his family today I do not have any indication for a 96-hour hold and was forced to let him leave the department we encouraged him to stay with encouragement return if he has further problems would be happy to see him we offered other services including try to make arrangements for him to get a ride home all of which she refused. Discharge Plan Discharge Patient Disposition: Left Against Medical Advice Clinical Impression: Intellectual disability Condition: Stable Prescriptions: No Action atenolol 50 mg Tablet 50 mg PO BEDTIME 30 Days Qty: 30 RF: 1 Abilify Maintena 400 mg suspension,extended rel recon 400 mg IM PER PKG DIR 30 Days Qty: 1 RF: 2 Coding Level of Care Code ED Tipping Machine Operator for Theresa Coelho
== END 2021-02-05 11:35 | disposition left against medical advice (07) ==
PROVIDERS: Emergency Provider Family Medicine
DX: F79 Unspecified intellectual disabilities (principal); Z53.21 Procedure and treatment not carried out due to patient leaving prior to being seen by health care provider; F17.210 Nicotine dependence, cigarettes, uncomplicated
CPT/HCPCS: 99283

== ENCOUNTER → 2021-05-18 08:18 | Outpatient (BNVA) | payer MEDICAID, SELFPAY | PROVIDERS: Visit Provider Psychiatry & Neurology Psychiatry | DX: F25.9 Schizoaffective disorder, unspecified (principal); F79 Unspecified intellectual disabilities; Z79.899 Other long term (current) drug therapy; Z03.89 Encounter for observation for other suspected diseases and conditions ruled out | CPT/HCPCS: 90792 ==

== ENCOUNTER 2021-05-21 15:17 | Emergency (ER) | payer MEDICAID, SELFPAY ==
--- NOTE | 2021-05-21 15:31 | W.ED.CHESTPA ---
HPI - Chest Pain General: Chief Complaint: Psychiatric Symptoms Stated Complaint: MENTAL HEALTH EVAL Time Seen by Provider: 05/21/21 15:31 History of Present Illness: HPI narrative: Mr. Tomlin is a 30-year-old gentleman with history of schizoaffective disorder and intellectual disability who presents emergency department from clinic due to abnormal EKG chest discomfort. It is unclear exactly how long his chest discomfort has been going on however it is likely intermittent for a few months. Primarily has left anterior chest pain with radiation to bilateral shoulders. There are no other typical associated cardiac features. He does not think that there was a specific preceding injury. Quality is usually aching and improved with stretching and moderate intensity. No other specific changes in health, exacerbating, or alleviating factors. Review of Systems General: Reports: 10 or more systems reviewed and unremarkable except in HPI and below PFSH ED PFSH: Medical History Schizoaffective disorder Social History Smoking and tobacco status: current every day smoker Physical Exam Narrative: EXAM NARRATIVE: GENERAL/CONSTITUTIONAL - well-appearing. No acute distress. Eyes - PERRL, no conjunctival injection ENMT - Atraumatic external nose and ears. Moist mucous membranes NECK - supple. trachea midline CARDIOVASCULAR - regular rate and rhythm. CHEST -no tenderness to palpation of chest wall RESPIRATORY -clear to auscultation bilaterally. No retractions or accessory muscle use. ABDOMEN/GI - Nontender/Nondistended. No tenderness to percussion or evidence of peritonitis MSK - Extremities without obvious deformity or tenderness to palpation SKIN - Warm, Dry NEURO - alert and appropriately oriented. Moves all extremities equally. PSYCH -abnormal affect, calm Course ED course: - Patient was seen and evaluated by me at bedside - Patient placed on cardiac monitors, IV access obtained - Initial evaluation notable for no acute distress, nontoxic appearance. - Imaging notable for scoliosis - Based on patient history, evaluation, labs, and imaging as interpreted the most likely cause of the patient's condition is unclear though likely musculoskeletal in nature. Patient is low risk for cardiac pathology. - The results of ED evaluation were discussed with the patient including prescriptions and/or symptomatic cares (if applicable) including appropriate and responsible use, followup plan, and return precautions. The patient verbalized understanding and felt safe for discharge. - Patient discharged in satisfactory condition. Vital Signs: Vital signs: Vital Signs Temperature 99.2 F 05/21/21 15:32 Pulse Rate 87 05/21/21 15:42 Respiratory Rate 14 05/21/21 15:32 Blood Pressure 159/79 05/21/21 15:42 Pulse Oximetry 98 05/21/21 15:42 MDM - Chest Pain Medical Records: Attestation: I reviewed the patient's medical records. Lab Data: Attestation: I reviewed the patient's lab results. EKG Data^: EKG 1: EKG interpretation date: 05/30/21 EKG interpretation time: 17:21 Interpretation: Twelve-lead EKG shows a regular sinus rhythm at a rate of 73. OR interval 121, QRS 114, QTc 419. Normal axis. Interpretation: Sinus rhythm, interventricular conduction delay which likely explains the abnormalities appreciated by sending clinic. Similar to provided copies from clinic. Discharge Plan Discharge Patient Disposition: Home Clinical Impression: Chest pain, Bilateral shoulder pain, Abnormal ECG Condition: Stable Prescriptions: No Action ciprofloxacin-dexamethasone [Ciprodex] 0.3-0.1 % drops,suspension 4 drp otic (ear) BID 7 Days Qty: 7.5 RF: 0 trazodone 50 mg tablet 50 mg PO BEDTIME RF: 0 aripiprazole 30 mg tablet 30 mg PO BEDTIME RF: 0 Discharge Orders: Discharge ED (Routine); Ordered 05/21/21 Ordered By: Ronald Fisher Referrals: Kimberly Hampton NP [Primary Care Provider] - Discharge Diet: Usual diet Discharge Activity: Resume usual activity Patient Instructions: Chest Pain (ED), Back Pain (ED) Activity Restrictions/Additional Instructions: Thank you for visiting the emergency department. You were seen and evaluated for back and shoulder pain. The exact cause of your symptoms is not identified on x-ray. You were found to have abnormal curvature of your spine. Please follow-up with your primary care provider. Please return to the emergency department for anything that you are concerned about and feel needs emergency department evaluation. Coding Level of Care Code ED Public Health Administrator for Theresa Coelho
[2021-05-21 15:32] VITALS: BP 159/79; PULSE 97; RESP 14; TEMP 37.3; O2SAT 97; BMI 22.2
[2021-05-21 15:42] VITALS: BP 159/79; PULSE 87; O2SAT 98
--- NOTE | 2021-05-21 15:51 | ECG_ITS ---
[facility] Test Date: 2021-05-21 Pat Name: Moses Tomlin Department: Room: Gender: Male Strike Planning Applications: : 1990 Requested By: Ronald Fisher Order Number: [id number] Mendy MD: Cali Aguilar M.D. Measurements Intervals Gabriels Rate: 73 P: 57 MT: 121 QRS: 85 QRSD: 114 T: 66 QT: 380 QTc: 419 Interpretive Statements SINUS RHYTHM INCOMPLETE RIGHT BUNDLE BRANCH BLOCK [90+ ms QRS DURATION, TERMINAL R IN V1/V2, 40+ ms S IN I/aVL/V4/V5/V6] NONSPECIFIC ST & T-WAVE ABNORMALITY Compared to ECG 10/07/2018 17:25:53 No significant changes Electronically Signed On 05-21-2021 21:06:51 CDT by Cali Aguilar M.D. [email or web address]
--- NOTE | 2021-05-21 15:51 | XR_ITS ---
WS: [id number] Exam: XR chest 2V* [id number] Date/Time of Exam: 05/21/2021 3:53 PM Reason For Exam: chest pain Lungs are clear and fully expanded. Unremarkable cardiomediastinal structures. No pleural effusions. Dextroscoliosis of the T-spine. XR/XR chest 2V* [id number] IMPRESSION: 1. No acute cardiopulmonary process identified.
== END 2021-05-21 18:57 | disposition home or self-care (01) ==
PROVIDERS: Emergency Provider Emergency Medicine; PCP Nurse Practitioner Family
DX: R07.9 Chest pain, unspecified (principal); R94.31 Abnormal electrocardiogram [ECG] [EKG]; M25.512 Pain in left shoulder; M25.511 Pain in right shoulder; F17.210 Nicotine dependence, cigarettes, uncomplicated
CPT/HCPCS: 71046; 93005; 99283

== ENCOUNTER → 2021-06-29 11:22 | Outpatient (BNVA) | payer MEDICAID, SELFPAY | PROVIDERS: Visit Provider Psychiatry & Neurology Psychiatry | DX: F25.9 Schizoaffective disorder, unspecified (principal); F20.9 Schizophrenia, unspecified; F79 Unspecified intellectual disabilities | CPT/HCPCS: 99214 ==

== ENCOUNTER → 2021-10-21 09:01 | Outpatient (BNVA) | payer MEDICAID, SELFPAY | PROVIDERS: Visit Provider Psychiatry & Neurology Psychiatry | DX: F25.9 Schizoaffective disorder, unspecified (principal); F79 Unspecified intellectual disabilities | CPT/HCPCS: 99214 ==

== ENCOUNTER → 2021-11-16 10:21 | Outpatient (BNVA) | payer MEDICAID, SELFPAY | PROVIDERS: Visit Provider Nurse Practitioner Family | DX: R63.1 Polydipsia (principal); Z13.1 Encounter for screening for diabetes mellitus; F25.9 Schizoaffective disorder, unspecified; F79 Unspecified intellectual disabilities; K21.9 Gastro-esophageal reflux disease without esophagitis; M62.838 Other muscle spasm; Z79.899 Other long term (current) drug therapy | CPT/HCPCS: 80053; 80061; 83036; 84443 ==

== ENCOUNTER → 2022-01-25 07:56 | Outpatient (BNVA) | payer MEDICAID, SELFPAY | PROVIDERS: Visit Provider Psychiatry & Neurology Psychiatry | DX: F25.9 Schizoaffective disorder, unspecified (principal); G47.00 Insomnia, unspecified; F79 Unspecified intellectual disabilities | CPT/HCPCS: 99214 ==

== ENCOUNTER → 2023-03-02 14:28 | Outpatient (BNVA) | payer MEDICAID, SELFPAY | PROVIDERS: PCP Nurse Practitioner Family; Visit Provider Psychiatry & Neurology Psychiatry | DX: F25.9 Schizoaffective disorder, unspecified (principal); G25.9 Extrapyramidal and movement disorder, unspecified; Z79.899 Other long term (current) drug therapy | CPT/HCPCS: 80053; 80061; 83036; 84443; 85025 ==

== ENCOUNTER → 2024-04-02 09:39 | Outpatient (BNVA) | payer OTHER, SELFPAY | PROVIDERS: PCP Nurse Practitioner Family; Visit Provider Psychiatry & Neurology Psychiatry | DX: Z79.899 Other long term (current) drug therapy (principal); F25.0 Schizoaffective disorder, bipolar type; F79 Unspecified intellectual disabilities | CPT/HCPCS: 80053; 80061; 83036; 84443; 85025 ==

== ENCOUNTER → 2025-02-27 11:45 | Outpatient (BNVA) | payer SELFPAY | PROVIDERS: Visit Provider Psychiatry & Neurology Psychiatry | DX: Z79.899 Other long term (current) drug therapy (principal) | CPT/HCPCS: 80053; 80061; 83036; 84443; 85025 ==